=== PATIENT | male | born 1975 | race Caucasian/White ===

== ENCOUNTER 2021-10-14 17:01 | Inpatient (IN) | payer BC ==
--- OUTSIDE RECORDS SUMMARY | 2021-10-14 17:04 | XMS REPORT | Continuity of Care Document ---
:1975 Author Organization [facility] t Address [address] [place] [address] Care Team Providers Name Role Phone UNKNOWN Primary Care Physician Unavailable ALEJANDRO MANRIQUEZ M.D. Attending Clinician Unavailable ALEJANDRO MANRIQUEZ M.D. Admitting Clinician Unavailable Payers Payer Name Policy Type Policy Number Effective Date Expiration Date S ource Problems This patient has no known problems. Allergies, Adverse Reactions, Alerts Allergy Allergy Status Severity Reaction(s) Onset Inactive Treating Comm ents Source Name Type Date Date Clinician No Known DA Active U [facility] All[facility]ie 03-12 [place] s 00:00: d 00 [facility] Medications This patient has no known medications. Procedures This patient has no known procedures. Encounters Start End Encounter Admission Attending Care Care Encounter Source Date/Time Date/Time Type Type Clinicians Facility Department ID 2017-04-28 2017-04-28 Outpatient ALEJANDRO [facility] A[facility] [id number] 16:09:00 16:09:00 [facility] 2017-04-05 2017-04-05 Outpatient ALEJANDRO [facility] MED [id number] 14:08:00 14:08:00 [facility] Results Test Description Test Time Test Comments Results Result Sourc e Comments AFB Culture and 2017-05-24 Specimen/Source: Smear 10:38:00 Wound/LEFT HANDCollected: 03/29/2017 18:57 Status: Final Last Updated: 05/24/2017 10:38 [id number] e (Final) (Final) 03/30/17 No acid fast bacill seen on direct smear Culture Result (Final) (Final) 05/24/17 No growth of AFB at six (6) weeks Fungus Culture 2017-05-10 Specimen/Source: with Stain 12:05:00 Wound/LEFT HANDCollected: 03/29/2017 18:57 Status: Final Last Updated: 05/10/2017 12:05 Fungal Smear Result (Final) (Final) 03/30/17 No yeast or hyphae seen Culture Result (Final) (Final) 04/04/17 No Fungus isolated to date 04/11/17 No fungus isolated to date 04/18/17 No fungus isolated to date 04/25/17 No fungus isolated to date 05/02/17 No fungus isolated to date 05/10/17 No fungus isolated at 6 weeks Culture, Wound 2017-04-13 Specimen/Source: Surgical 15:57:00 Wound/LEFT HANDCollected: 03/29/2017 18:57 Status: Final Last Updated: 04/13/2017 15:57 Gram Stain (Final) (Final) 03/30/17 No organsims seen, No WBC's seen Culture Result (Final) (Final) 03/30/17 No growth 24 hours 03/31/17 From broth Gram Positive Cocci in chains 04/01/17 From broth Alpha hemolytic Streptococcus (Group D, not Enterococcus), sent to reference lab for identification and susceptibility testing 04/02/17 Anaerobic culture:No anaerobes isolated at 3 days 04/04/17 Streptococcus thoraltensis Susceptible: Cefepime, Cefotaxime, Ceftriaxone, Chloramphenicol, Clindamycin, Erythromycin, Levofloxacin, Penicillin, Vancomycin. +[facility]formed at [facility] +[facility] +[address] [place] [phone] + +Dir: Osmany Lewis MD Isolate (Final) (Final) 03/31/17 Few Pasteurella aerogenes 04/01/17 Sent to reference lab for susceptibility testing 04/02/17 Amoxicilllin/Clavulan ic Acid .032 ug/ml: Sensitive +04/13/17 Beta lactamase negative +Azithromycin: Susceptible +Ampicillin: Susceptible +Chloramphenicol: Susceptible +Erythromycin: Resistant +Penicillin: Susceptible +Tetracycline: Susceptible +Trimethoprim/Sulfa: Intermediate +Performed at [facility] +[facility] +[address] [place] [phone] + +Dir: Cullen Chapman MD Result added after release. Isolate (Final) (Final) 03/31/17 Few Pasteurella aerogenes 04/01/17 Sent to reference lab for susceptibility testing +04/02/17 Amoxicilllin/Clavulan ic Acid .032 ug/ml: Sensitive Result added after release. Culture Result (Final) (Final) 03/30/17 No growth 24 hours 03/31/17 From broth Gram Positive Cocci in chains 04/01/17 From broth Alpha hemolytic Streptococcus (Group D, not Enterococcus), sent to reference lab for identification and susceptibility testing 04/02/17 Anaerobic culture:No anaerobes isolated at 3 days +04/04/17 Streptococcus thoraltensis +Susceptible: Cefepime, Cefotaxime, Ceftriaxone, Chloramphenicol, +Clindamycin, Erythromycin, Levofloxacin, Penicillin, Vancomycin. Result added after release. Culture Result (Final) (Final) 03/30/17 No growth 24 hours 03/31/17 From broth Gram Positive Cocci in chains 04/01/17 From broth Alpha hemolytic Streptococcus (Group D, not Enterococcus), sent to reference lab for identification and susceptibility testing 04/02/17 Anaerobic culture:No anaerobes isolated at 3 days Result added after release. Isolate (Final) (Final) 03/31/17 Few Pasteurella aerogenes 04/01/17 Sent to reference lab for susceptibility testing
[2021-10-14] MEDS ORDERED: METOPROLOL TARTRATE 5 MG/5 ML INJ IV ONE (17:49)
[2021-10-14 17:51] LABS: Absolute Lymphocytes (CBC) 1.2 K/uL (0.7-4.9); Lymphocytes % 20.1 % (15.3-44.8); MPV 8.6 fL (7.6-11.3); RBC Red Blood Cell Count 4.29 M/uL (4.33-5.43)
[2021-10-14 18:14] LABS: Potassium 3.5 mmol/L (3.5-5.1)
[2021-10-14 18:16] LABS: Troponin High Sensitivity 76.1 pg/mL (<58.9)
--- NOTE | 2021-10-14 18:43 | RAD REPORT ---
EXAM DESCRIPTION: RAD - Chest Single View - 10/14/2021 6:19 pm CLINICAL HISTORY: Hypertension COMPARISON: Chest Single View dated 05/25/2021; Chest Pa And Lat (2 Views) dated 02/13/2021; Chest Sin gle View dated 02/02/2021; Chest Single View dated 11/28/2020No comparisons FINDINGS: Lines: None. Lungs: Low lung volumes. Hazy lung opacities bilaterally. Pleural: No significant pleural effusions or pneumothorax. Cardiac: Cardiomegaly. Bones: No acute fractures. Other: IMPRESSION: Hazy lung opacities bilaterally concerning for edema.
--- NOTE | 2021-10-14 19:42 | RAD REPORT ---
EXAM DESCRIPTION: CT - Head Brain Wo Cont - 10/14/2021 7:34 pm CLINICAL HISTORY: vision loss COMPARISON: <Comparisons> TECHNIQUE: All CT scans are performed using dose optimization technique as appropriate and may inclu de automated exposure control or mA/KV adjustment according to patient size. FINDINGS: No intracranial hemorrhage, hydrocephalus or extra-axial fluid collection.No areas of brai n edema or evidence of midline shift. The paranasal sinuses and mastoids are clear. The calvarium is intact. IMPRESSION: No acute intracranial abnormality.
--- NOTE | 2021-10-14 21:11 | ER ---
Nurse's Notes [facility] Name: Pedro Luis Smith Age: 46 yrs Sex: Male : 1975 Arrival Date: 10/14/2021 Time: 17:04 Bed 28 Private MD: Diagnosis: Essential (primary) hypertension;Hypertensive crisis, unspecified;Hyperglycemia, unspecified;Other obesity;Low vision, one eye, unspecified eye-OPTIC PAPILLITIS Presentation: 10/14 17:14 Chief complaint: Patient states: HTN today while at opthmologist. BP 240/150. Has been ll1 loosing vision in his R eye for 19 days. Coronavirus screen: Vaccine status: Patient reports being unvaccinated. Client denies travel out of the [place] in the last 14 days. At this time, the client does not indicate any symptoms associated with coronavirus-19. Ebola Screen: Patient denies travel to an Ebola-affected area in the 21 days before illness onset. Initial Sepsis Screen: Does the patient meet any 2 criteria? No. Patient's initial sepsis screen is negative. Does the patient have a suspected source of infection? No. Patient's initial sepsis screen is negative. Risk Assessment: Do you want to hurt yourself or someone else? Patient reports no desire to harm self or others. Onset of symptoms was October 14, 2021. 17:14 Method Of Arrival: Ambulatory ll1 17:14 Acuity: VELVET 2 ll1 Triage Assessment: 17:17 General: Appears in no apparent distress. Behavior is calm, cooperative, appropriate ll1 for age. Pain: Denies pain. EENT: Reports decreased vision R eye. Neuro: Denies headache. Cardiovascular: Reports high BP. Historical: - Allergies: 17:17 No Known Allergies; ll1 - PMHx: 17:17 Hypertensive disorder; ll1 - PSHx: 17:17 hand SX; ll1 - Immunization history:: Client reports having NOT received the Covid vaccine. Flu vaccine status is unknown. - Social history:: Smoking status: Patient denies any tobacco usage or history of. Screenin:40 Abuse screen: Denies threats or abuse. Nutritional screening: No deficits noted. vg1 Tuberculosis screening: No symptoms or risk factors identified. Fall Risk No fall in past 12 months (0 pts). No secondary diagnosis (0 pts). IV access (20 points). Ambulatory Aid- None/Bed Rest/Nurse Assist (0 pts). Gait- Normal/Bed Rest/Wheelchair (0 pts) Mental Status- Oriented to own ability (0 pts). Total Santos Fall Scale indicates No Risk (0-24 pts). Assessment: 17:39 Reassessment: Pt stated has not take BP meds in approximately two years. General: vg1 Appears comfortable, Behavior is calm, cooperative. Pain: Denies pain. Neuro: Level of Consciousness is awake, alert, obeys commands, Oriented to person, place, time, situation, Denies headache. Cardiovascular: Denies chest pain, lightheadedness, nausea, palpitations, shortness of breath, vomiting, Patient's skin is warm and dry. Respiratory: Airway is patent Respiratory effort is even, unlabored. GI: Patient currently denies nausea, vomiting. : No signs and/or symptoms were reported regarding the genitourinary system. EENT: Reports went to go see an eye doctor today due to vision loss x 10 day. Derm: Skin is intact, is healthy with good turgor. Musculoskeletal: Circulation, motion, and sensation intact. 18:58 Reassessment: Patient appears in no apparent distress at this time. No changes from vg1 previously documented assessment. Patient and/or family updated on plan of care and expected duration. Pain level reassessed. Patient is alert, oriented x 3, equal unlabored respirations, skin warm/dry/pink. 19:42 Reassessment: Patient appears in no apparent distress at this time. as6 21:21 General: Appears in no apparent distress. comfortable, Behavior is calm, cooperative, tw5 appropriate for age. Pain: Denies pain. Neuro: No deficits noted. Cardiovascular: Denies chest pain, Patient's skin is warm and dry. 22:06 Cardiovascular: flushed in the face. tw5 Vital Signs: 17:14 BP 223 / 131; Pulse 93; Resp 18; Temp 98.2; Pulse Ox 99% ; Weight 113.4 kg; Height 5 ll1 ft. 9 in. (175.26 cm); Pain 0/10; 17:38 BP 211 / 105; Pulse 98; Resp 14; Pulse Ox 98% ; vg1 17:53 BP 209 / 110; Pulse 85; vg1 18:00 BP 203 / 108; Pulse 80; vg1 18:05 BP 203 / 120; Pulse 80; vg1 18:09 BP 202 / 106; Pulse 79; vg1 18:17 BP 191 / 125; Pulse 81; vg1 18:26 BP 204 / 110; Pulse 79; Resp 18; ap3 18:55 BP 196 / 114; Pulse 80; Resp 17; Pulse Ox 99% on R/A; vg1 19:41 BP 206 / 111; Pulse 83 MON; Resp 20 S; Pulse Ox 99% on R/A; as6 20:56 BP 197 / 120; Pulse 76; Resp 18; Pulse Ox 96% on R/A; tw5 21:21 BP 199 / 112; Pulse 98; Pulse Ox 97% on R/A; tw5 22:05 BP 199 / 115; Pulse 90; Resp 18; Pulse Ox 100% on R/A; tw5 22:30 BP 181 / 100; Pulse 88; Resp 18; Pulse Ox 100% on R/A; tw5 23:06 BP 188 / 97; Pulse 90; Resp 18; Pulse Ox 97% on R/A; tw5 17:14 Body Mass Index 36.92 (113.40 kg, 175.26 cm) ll1 ED Course: 17:04 Patient arrived in ED. ds1 17:12 Kevin Zepeda MD is Attending Physician. kdr 17:17 Triage completed. ll1 17:17 Arm band placed on Patient placed in an exam room, on a stretcher. ll1 17:25 Jennifer Edwards, RN is Primary Nurse. vg1 17:28 EKG completed in triage. Results shown to MD. ap3 17:35 Initial lab(s) drawn, by ak, sent to lab. Inserted saline lock: 20 gauge in right vg1 antecubital area, using aseptic technique. Blood collected. 17:40 Patient has correct armband on for positive identification. Bed in low position. Call 1 light in reach. Side rails up X 1. Adult w/ patient. security monitor on. Pulse ox on. NIBP on. 18:21 XRAY Chest (1 view) In Process Unspecified. EDMS 19:17 Attending Physician role handed off by Kevin Zepeda MD rishabh 19:17 Johan Parks MD is Attending Physician. rishabh 19:34 Head Brain Wo Cont In Process Unspecified. EDMS 20:48 Basic Metabolic Panel Sent. tw5 20:48 CBC with Diff Sent. tw 20:48 Troponin HS Sent. tw 21:07 Katie Gay MD is Hospitalizing Provider. [facility] 21:11 Rene Guaman MD is Hospitalizing Provider. la 21:21 BNP Sent. tw10/15 00:23 No provider procedures requiring assistance completed. Patient admitted, IV remains in tw5 place. Administered Medications: 10/14 17:49 Drug: Lopressor (metoprolol) 5 mg Route: IVP; Site: right antecubital; vg1 17:56 Drug: Lopressor (metoprolol) 5 mg Route: IVP; Site: right antecubital; vg1 18:05 Drug: Lopressor (metoprolol) 5 mg Route: IVP; Site: right antecubital; vg1 21:21 Follow up: Response: No adverse reaction; Blood pressure is unchanged 21:21 Drug: Norvasc (amlodipine) 10 mg Route: PO; 23:10 Follow up: Response: No adverse reaction; Blood pressure is lowered 21:21 Drug: hydrALAZINE 10 mg Route: IVP; Site: right antecubital; tw 23:10 Follow up: Response: No adverse reaction; Blood pressure is lowered 21:21 Drug: HydrALAZINE 25 mg Route: PO; 23:10 Follow up: Response: No adverse reaction; Blood pressure is lowered 10/15 00:23 Drug: Lisinopril 10 mg Route: PO; 00:23 Follow up: Response: Other; adminstered upon hospitlization. Intake: Outcome: 10/14 21:10 Decision to Hospitalize by Provider. [facility] 10/15 00:14 Admitted to ICU Report called to Attempted to call report to melanie in ICU 00:23 Condition: stable 00:23 Admitted to ICU Report called to report called to melanie 00:24 Patient left the ED. Signatures: Dispatcher [employer] Johan May MD MD cha Rittger, Kevin, MD MD kdr Sanford, Demi ds1 Rd Floyd, SECONDS GRADER-C SECONDS GRADER-Cla1 Tatum Garibay RN RN ap3 Jennifer Edwards RN RN vg1 Linda Cowan RN RN 1 Ermelinda Freedman tw5 Jose Alejandro Flores RN RN as6 Corrections: (The following items were deleted from the chart) 10/14 17:42 17:39 EENT: No signs and/or symptoms were reported regarding the EENT system. vg1 vg1 18:09 17:37 COVID 19 CPL+ drawn and sent. vg1 EDMS
--- NOTE | 2021-10-14 21:11 | EDPHYS ---
Physician Documentation [facility] Name: Pedro Luis Smith Age: 46 yrs Sex: Male : 1975 Arrival Date: 10/14/2021 Time: 17:04 Bed 28 Private MD: ED Physician Johan Parks HPI: 10/14 18:55 This 46 yrs old Male presents to ER via Ambulatory with complaints of High Blood kdr Pressure. 18:55 The patient has elevated blood pressure and discovered this Patient's been off of his kdr blood pressure medicine for a couple of years. Today he went to the information resource consultant office because he was having some visual difficulty in his right eye. The information resource consultant noted that he has a visual field deficit in the right eye in the upper nasal quadrant. He also noted some optic nerve abnormalities. At that time a blood pressure was taken and it was noted to be elevated similar to what was found to triage here. Subsequently was told to come to the ED for further evaluation.. Onset: The symptoms/episode began/occurred at an unknown time. Modifying factors: The symptoms are aggravated by Nothing, The symptoms are alleviated by Nothing. Associated signs and symptoms: Pertinent positives: visual changes. Severity of symptoms: At its worst the blood pressure was 230 mm Hg, in the emergency department the blood pressure is unchanged. The patient has experienced similar episodes in the past, chronically. The patient has not recently seen a physician, Patient was sent from the information resource consultant office today. Historical: - Allergies: 17:17 No Known Allergies; ll1 - PMHx: 17:17 Hypertensive disorder; ll1 - PSHx: 17:17 hand SX; ll1 - Immunization history:: Client reports having NOT received the Covid vaccine. Flu vaccine status is unknown. - Social history:: Smoking status: Patient denies any tobacco usage or history of. ROS: 18:55 Constitutional: Negative for fever, chills, and weight loss, Eyes: Negative for injury, kdr pain, redness, and discharge, ENT: Negative for injury, pain, and discharge, Neck: Negative for injury, pain, and swelling, Cardiovascular: Negative for chest pain, palpitations, and edema, Respiratory: Negative for shortness of breath, cough, wheezing, and pleuritic chest pain, Abdomen/GI: Negative for abdominal pain, nausea, vomiting, diarrhea, and constipation, Back: Negative for injury and pain, : Negative for injury, bleeding, discharge, and swelling, MS/Extremity: Negative for injury and deformity, Skin: Negative for injury, rash, and discoloration, Psych: Negative for depression, anxiety, suicide ideation, homicidal ideation, and hallucinations, Allergy/Immunology: Negative for hives, rash, and allergies, Endocrine: Negative for neck swelling, polydipsia, polyuria, polyphagia, and marked weight changes, Hematologic/Lymphatic: Negative for swollen nodes, abnormal bleeding, and unusual bruising. 18:55 Neuro: Positive for visual changes. Exam: 17:46 ECG was reviewed by the Attending Physician. kdr 18:55 Constitutional: This is a well developed, well nourished patient who is awake, alert, kdr and in no acute distress. Head/Face: Normocephalic, atraumatic. Eyes: Pupils equal round and reactive to light, extra-ocular motions intact. Lids and lashes normal. Conjunctiva and sclera are non-icteric and not injected. Cornea within normal limits. Periorbital areas with no swelling, redness, or edema. Neck: Trachea midline, no thyromegaly or masses palpated, and no cervical lymphadenopathy. Supple, full range of motion without nuchal rigidity, or vertebral point tenderness. No Meningismus. Chest/axilla: Normal chest wall appearance and motion. Nontender with no deformity. No lesions are appreciated. Cardiovascular: Regular rate and rhythm with a normal S1 and S2. No gallops, murmurs, or rubs. Normal PMI, no JVD. No pulse deficits. Respiratory: Lungs have equal breath sounds bilaterally, clear to auscultation and percussion. No rales, rhonchi or wheezes noted. No increased work of breathing, no retractions or nasal flaring. Abdomen/GI: Soft, non-tender, with normal bowel sounds. No distension or tympany. No guarding or rebound. No evidence of tenderness throughout. Back: No spinal tenderness. No costovertebral tenderness. Full range of motion. Skin: Warm, dry with normal turgor. Normal color with no rashes, no lesions, and no evidence of cellulitis. MS/ Extremity: Pulses equal, no cyanosis. Neurovascular intact. Full, normal range of motion. Psych: Awake, alert, with orientation to person, place and time. Behavior, mood, and affect are within normal limits. Vital Signs: 17:14 BP 223 / 131; Pulse 93; Resp 18; Temp 98.2; Pulse Ox 99% ; Weight 113.4 kg; Height 5 ll1 ft. 9 in. (175.26 cm); Pain 0/10; 17:38 BP 211 / 105; Pulse 98; Resp 14; Pulse Ox 98% ; vg1 17:53 BP 209 / 110; Pulse 85; vg1 18:00 BP 203 / 108; Pulse 80; vg1 18:05 BP 203 / 120; Pulse 80; vg1 18:09 BP 202 / 106; Pulse 79; vg1 18:17 BP 191 / 125; Pulse 81; vg1 18:26 BP 204 / 110; Pulse 79; Resp 18; ap3 18:55 BP 196 / 114; Pulse 80; Resp 17; Pulse Ox 99% on R/A; vg1 19:41 BP 206 / 111; Pulse 83 MON; Resp 20 S; Pulse Ox 99% on R/A; as6 20:56 BP 197 / 120; Pulse 76; Resp 18; Pulse Ox 96% on R/A; tw5 21:21 BP 199 / 112; Pulse 98; Pulse Ox 97% on R/A; tw5 22:05 BP 199 / 115; Pulse 90; Resp 18; Pulse Ox 100% on R/A; tw5 22:30 BP 181 / 100; Pulse 88; Resp 18; Pulse Ox 100% on R/A; tw5 23:06 BP 188 / 97; Pulse 90; Resp 18; Pulse Ox 97% on R/A; tw5 17:14 Body Mass Index 36.92 (113.40 kg, 175.26 cm) ll1 MDM: 19:17 Patient medically screened. rishabh 21:05 Differential diagnosis: hypertensive crisis, Malignant HTN, CVA, intracerebral rishabh hemorrhage. Data reviewed: vital signs, nurses notes, lab test result(s), EKG, radiologic studies, CT scan, plain films. Data interpreted: monitoring analyst: rate is 76 beats/min, rhythm is regular, Pulse oximetry: on room air is 96 %. Test interpretation: by ED physician or midlevel provider: ECG, plain radiologic studies. Counseling: I had a detailed discussion with the patient and/or guardian regarding: the historical points, exam findings, and any diagnostic results supporting the discharge/admit diagnosis, lab results, radiology results, the need for further work-up and treatment in the hospital. 10/14 17:36 Order name: Basic Metabolic Panel; Complete Time: 19:14 vg1 10/14 17:36 Order name: CBC with Diff; Complete Time: 19:14 vg1 10/14 17:36 Order name: Troponin HS; Complete Time: 19:14 vg1 10/14 17:36 Order name: Basic [facility]abolic Panel [facility] 10/14 17:36 Order name: CBC with Diff [facility] 10/14 17:36 Order name: XRAY Chest (1 view); Complete Time: 19:14 vg1 10/14 17:36 Order name: Troponin HS [facility] 10/14 18:09 Order name: SARS-COV-2 RT PCR; Complete Time: 19:14 EDMS 10/14 19:34 Order name: Head Brain Wo Cont; Complete Time: 21:05 EDMS 10/14 21:05 Order name: BNP; Complete Time: 22:08 rishabh 10/14 17:36 Order name: EKG; Complete Time: 17:37 1 10/14 17:36 Order name: Cardiac monitoring; Complete Time: 17:36 1 10/14 17:36 Order name: EKG - Nurse/Tech; Complete Time: 17:36 [facility] 10/14 17:36 Order name: IV Saline Lock; Complete Time: 17:36 1 10/14 17:36 Order name: Labs collected and sent; Complete Time: 17:37 1 10/14 17:36 Order name: O2 Per Protocol; Complete Time: 17:37 1 10/14 17:36 Order name: O2 Sat Monitoring; Complete Time: 17:43 1 10/14 17:36 Order name: EKG; Complete Time: 17:37 kdr 10/14 17:36 Order name: Cardiac monitoring; Complete Time: 17:42 kdr 10/14 17:36 Order name: EKG - Nurse/Tech; Complete Time: 17:42 kdr 10/14 17:36 Order name: IV Saline Lock; Complete Time: 17:42 kdr 10/14 17:36 Order name: Labs collected and sent; Complete Time: 17:43 kdr 10/14 17:36 Order name: O2 Per Protocol; Complete Time: 17:42 kdr 10/14 17:36 Order name: O2 Sat Monitoring; Complete Time: 17:42 kdr EC:46 Rate is 94 beats/min. Rhythm is regular, Sinus Rhythm with No ectopy. QRS [place] is kdr Normal. VT interval is normal. QRS interval is normal. QT interval is normal. Clinical impression: NSR w/ Non-specific ST/T Changes. Administered Medications: 17:49 Drug: Lopressor (metoprolol) 5 mg Route: IVP; Site: right antecubital; vg1 17:56 Drug: Lopressor (metoprolol) 5 mg Route: IVP; Site: right antecubital; vg1 18:05 Drug: Lopressor (metoprolol) 5 mg Route: IVP; Site: right antecubital; vg1 21:21 Follow up: Response: No adverse reaction; Blood pressure is unchanged tw5 21:21 Drug: Norvasc (amlodipine) 10 mg Route: PO; tw5 23:10 Follow up: Response: No adverse reaction; Blood pressure is lowered tw5 21:21 Drug: hydrALAZINE 10 mg Route: IVP; Site: right antecubital; tw5 23:10 Follow up: Response: No adverse reaction; Blood pressure is lowered tw5 21:21 Drug: HydrALAZINE 25 mg Route: PO; tw5 23:10 Follow up: Response: No adverse reaction; Blood pressure is lowered tw5 10/15 00:23 Drug: Lisinopril 10 mg Route: PO; tw5 00:23 Follow up: Response: Other; adminstered upon hospitlization. tw5 Disposition Summary: 10/14/21 21:10 Hospitalization Ordered Hospitalization Status: Observation rishabh Condition: Fair rishabh Problem: new rishabh Symptoms: have improved rishabh Bed/Room Type: Standard rishabh Provider: Rene Guaman(10/14/21 21:11) la1 Location: Intensive Care Unit(10/15/21 00:08) eb1 Room Assignment: 1-(10/15/21 00:08) eb1 Diagnosis - Essential (primary) hypertension rishabh - Hypertensive crisis, unspecified rishabh - Hyperglycemia, unspecified rishabh - Other obesity rishabh - Low vision, one eye, unspecified eye - OPTIC PAPILLITIS rishabh Forms: - Medication Reconciliation Form rishabh - SBAR form rishabh Signatures: Dispatcher [employer] EDJohan Meadows MD MD cha Rittger, Kevin, MD MD kdr Attema, Lee, FNP-C CERTIFIED LACTATION EDUCATOR-Cla1 Melinda Moser RN RN eb1 Jennifer Edwards, RN RN vg1 Linda Cowan, RN RN 1 Ermelinda Freedman 5 Corrections: (The following items were deleted from the chart) 10/14 17:46 17:37 Chest Single View+RAD.RAD.BRZ ordered. EDMS EDMS 18:09 17:30 COVID 19 CPL+MR.LAB.BRZ ordered. EDMS EDMS 19:34 18:08 Head Brain W/Wo Con ordered. EDMS EDMS 21:11 21:10 Katie Gay cha [facility] 10/15 00:08 10/14 21:10 [facility] 00:08 10/14 21:10 [place] [id number]
[2021-10-14] MEDS ORDERED: HYDRALAZINE HCL 20 MG/ML VIAL ONE (21:12)
[2021-10-14] MEDS ORDERED: HYDRALAZINE HCL 25 MG TABLET ONE (21:12)
[2021-10-14] MEDS ORDERED: AMLODIPINE 10 MG TAB ONE (21:13)
--- NOTE | 2021-10-14 22:31 | P.HP ---
Certification for Inpatient Patient admitted to: Inpatient With expected LOS: >2 Midnights Patient will require the following post-hospital care: None Practitioner: I am a practitioner with admitting privileges, knowledge of patient current condition, hospital course, and medical plan of care. Services: Services provided to patient in accordance with Admission requirements found in Title 42 Section 412.3 of the Code of Federal Regulations Patient History Date of Service: 10/14/21 Reason for admission: hypertensive emergency History of Present Illness: 46-year-old male with history of hypertension presents to the emergency department for elevated blood pressure. Patient reports that he has been having difficulty with his vision in his right eye over the course of the last 1 week or so he was seen by clinical data assistant who noted that his blood pressure was markedly elevated in the 200s over 100s he was then referred to the emergency department for further evaluation. Throughout his stay in the emergency department his blood pressure has been as high as 223/131 without a diastolic less than 105 at any point his labs revealed mildly elevated troponin, BNP. Patient reports that he has been off of his blood pressure medication for last 3 years and that he has checked his blood pressure on occasion and noted that his systolic is always around 200. His chest x-ray did reveal what appeared to be some mild pulmonary edema CT head brain without any acute findings. ED provider wishes to admit for further evaluation and management of hypertensive emergency - Past Medical/Surgical History -: Hypertension -: Left hand surgery Psychosocial/ Personal History: Lives at home with his family - Family History Mother -: Heart disease - Social History Smoking Status: Never smoker Alcohol use: Yes CD- Drugs: No Caffeine use: Yes Place of Residence: Home Review of Systems 10-point ROS is otherwise unremarkable Eyes: Vision Change (For 1 week right eye) Physical Examination - Physical Exam General: Alert, In no apparent distress, Oriented x3 HEENT: Atraumatic, PERRLA, Mucous membr. moist/pink, EOMI, Sclerae nonicteric Neck: Supple, 2+ carotid pulse no bruit, No LAD, Without JVD or thyroid abnormality Respiratory: Clear to auscultation bilaterally, Normal air movement Cardiovascular: Regular rate/rhythm, Normal S1 S2 Gastrointestinal: Normal bowel sounds, No tenderness Musculoskeletal: No tenderness Integumentary: No rashes Neurological: Normal speech, Normal strength at 5/5 x4 extr, Normal tone, Normal affect - Studies Laboratory Data (last 24 hrs) 10/14/21 17:35: WBC 5.9, Hgb 12.8 L, Hct 38.0 L, Plt Count 185 10/14/21 17:35: Sodium 138, Potassium 3.5, BUN 16, Creatinine 1.15, Glucose 278 H Assessment and Plan - Plan Assessment: Hypertensive emergency, elevated troponin Right eye visual field loss Plan: Hypertensive emergency, elevated troponin: Patient started on antihypertensive agents including lisinopril, metoprolol, amlodipine. Will aim for a modest drop in blood pressure throughout the evening. Cardiology consult in place will trend troponins, monitor on telemetry, patient denies any chest pain echocardiogram has been ordered as well. Patient ports he had longstanding significant hypertension and has blood pressure has been in the 200s over the course of last 3 years most likely. Counseled patient on importance of obtaining control of her blood pressure. Right eye visual field loss: Patient reports ongoing problem over the course last 1 week was evaluated by clinical data assistant today who did complete evaluation prior to referring him to the emergency department for the hypertension symptoms are unilateral in the superior medial aspect of the right eye with some blurriness CT head without contrast negative for any acute findings no visual field loss left eye, recommend further evaluation from ophthalmology after hypertension better controlled. DVT PPX: Lovenox Code status: Full Discharge Plan: Home Plan to discharge in: 48 Hours - Advance Directives Does patient have a Living Will: No Does patient have a Durable POA for Healthcare: No - Code Status/Comfort Care Code Status Assessed: Yes (Full code) Critical Care: No Time Spent Managing Pts Care (In Minutes): 55
[2021-10-15] MEDS ORDERED: HYDRALAZINE HCL 20 MG/ML VIAL IV PRN (00:23)
[2021-10-15] MEDS ORDERED: ONDANSETRON 4 MG/2 ML VIAL IV PRN (00:23)
[2021-10-15] MEDS ORDERED: lisinopriL 10 MG TAB ONE (00:27)
[2021-10-15 01:07] VITALS: O2SAT 97; BMI 41.1
--- NOTE | 2021-10-15 05:58 | P.PN ---
Date of Service: 10/15/21
[2021-10-15] MEDS ORDERED: METOPROLOL TAR 25 MG TAB PO SCH (06:00)
[2021-10-15 06:38] LABS: Absolute Lymphocytes (CBC) 1.2 K/uL (0.7-4.9); Lymphocytes % 19.8 % (15.3-44.8); MPV 8.4 fL (7.6-11.3); RBC Red Blood Cell Count 4.21 M/uL (4.33-5.43)
[2021-10-15 06:48] LABS: Urine Appearance Clear (Clear); Urine Bilirubin Negative (Negative); Urine Blood Negative (Negative); Urine Color Yellow (Yellow); Urine Glucose 2+ (Negative); Urine Protein Negative (Negative); Urine Urobilinogen 0.2 mg/dL (0.2-1.0)
[2021-10-15 06:49] LABS: Urine Microscopic Reflex NO UMIC
[2021-10-15 06:49] LABS: ALT/SGPT 78 U/L (12-78); AST/SGOT 48 U/L (15-37); Albumin 3.6 g/dL (3.4-5.0); Alkaline Phosphatase 48 U/L (45-117); BUN Blood Urea Nitrogen 11 mg/dL (7-18); Bicarbonate 27 mmol/L (21-32); Bilirubin Total 0.7 mg/dL (0.2-1.0); Glucose Level 232 mg/dL (74-106); HDL Cholesterol 24 mg/dL (40-60); LDL Cholesterol, Calculated 88 mg/dL (<130); Potassium 3.3 mmol/L (3.5-5.1); Protein, Total 6.6 g/dL (6.4-8.2); Sodium Level 139 mmol/L (136-145)
[2021-10-15] MEDS ORDERED: POTASSIUM CL SA 10 MEQ TAB PO ONE (07:51)
[2021-10-15] MEDS ORDERED: lisinopriL 10 MG TAB PO SCH (09:00)
[2021-10-15] MEDS ORDERED: AMLODIPINE 10 MG TAB PO SCH (09:00)
[2021-10-15] MEDS ORDERED: ASPIRIN EC 81 MG TAB PO SCH (09:00)
[2021-10-15] MEDS ORDERED: ENOXAPARIN 40 MG/0.4 ML SQ SCH (09:00)
--- NOTE | 2021-10-15 12:02 | RAD REPORT ---
EXAM DESCRIPTION: MRI - MRA Head Wo Cont - 10/15/2021 11:46 am CLINICAL HISTORY: Blurred vision COMPARISON: None. TECHNIQUE: Magnetic resonance angiogram was performed. 3D MIPS reconstruction performed FINDINGS: The anterior cerebral, middle cerebral, posterior cerebral, distal internal carotid and ba silar arteries do not demonstrate a significant stenosis. An aneurysm is not displayed. IMPRESSION: No acute abnormality displayed
--- NOTE | 2021-10-15 12:17 | RAD REPORT ---
EXAM DESCRIPTION: MRI - MRA Neck W/Wo Cont - 10/15/2021 11:46 am CLINICAL HISTORY: Blurred vision COMPARISON: None. TECHNIQUE: Magnetic resonance angiogram of the neck was performed. 20 cc MultiHance was administered intravenously. 3D MIPS reconstruction performed FINDINGS: Moderate stenosis proximal right vertebral artery. Remainder the vertebral arteries are no rmal caliber. Vertebral arteries are codominant. Mild plaque within the common carotid, internal carotid and external carotid arteries A dissection is not seen. IMPRESSION: Moderate stenosis proximal right vertebral artery estimated approximately 50 55%. Mild plaque within the carotid arteries NASCET criteria used. Mild 0-49% stenosis Moderate 50-69% stenosis Severe 70-99% stenosis
--- NOTE | 2021-10-15 12:17 | RAD REPORT ---
EXAM DESCRIPTION: MRI - Brain W/Wo Cont - 10/15/2021 11:47 am CLINICAL HISTORY: Blurred vision COMPARISON: head CT October 14, 2021 TECHNIQUE: Axial, sagittal, and coronal magnetic images of the brain were obtained. 20 cc MultiHance administered intravenously FINDINGS: No significant abnormal signal within the brain The ventricles are normal in caliber. Diffusion-weighted/ ADC mapping sequences do not demonstrate evidence of an acute infarction. No abnormal enhancement within the brain is seen. An extra-axial fluid collection is not noted. Fluid within the frontal sinus IMPRESSION: No acute intracranial abnormality displayed Fluid within the frontal sinus probably acute sinusitis
[2021-10-15 13:45] VITALS: TEMP 98.3
--- NOTE | 2021-10-15 14:07 | CON ---
Date of Consultation: 10/15/2021 Reason For Consultation: Hypertensive crisis. History Of Present Illness: Mr. Smith is a 46 with history of hypertension, but not taking any medic ations. He recently saw a physician because of right eye blindness. 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 No symptoms of chest pain or nausea or vomiting or diaphoresis. Denied PND, orthopnea, pedal edema, palpitations, or sync ope. His troponin was elevated at 76.1. BNP was 349, triglycerides 358. Past Medical History: Otherwise negative. Allergies: NONE. Medications: At home are none. Review of Systems: Negative. Social History: Negative. Family History: Negative. Physical Examination: Vital Signs: Blood pressure was 196/114 when he came in, when I saw him it was 140/84. HEENT: Negative. Neck: Supple with no bruit. Chest: Clear. Cardiac: Revealed a regular rhythm and rate with S4 gallops. Abdomen: Benign. Extremities: Revealed no clubbing, cyanosis, or edema. Diagnostic Data: As stated above. Chest x-ray was negative. EKG showed LVH. Impression And Plan: Hypertensive crisis, improved. He is on hydralazine, metoprolol, and lisinopri l. I agree with his present regimen. Echocardiogram is pending. He can go home today on his regime n as it is. I will make an arrangement for him as an outpatient to have a renal Doppler and MPI. AZIZA/CADENCE Voice ID: [id number] Report ID: [id number]
--- NOTE | 2021-10-15 16:11 | P.DS ---
Admission Date: 10/14/21 Discharge Date: 10/15/21 Disposition: ROUTINE DISCHARGE Discharge Condition: GOOD Reason for Admission: hypertensive emergency Consultations: Cardiology - Dr. Koehler Neurology - Dr. Prado Procedures: Problem List Amaurosis Fugax, Right eye visual field loss secondary to uncontrolled HTN, NSTEMI, secondary to demand ischemia due to HTN Brief History of Present Illness: 46yo M, PMH: HTN presented to ED due to elevated blood pressure noted as client hr manager office. Patient reports that he has been having difficulty with his vision in his right eye over the course of the last 1 week or so he was seen by client hr manager who noted that his blood pressure was markedly elevated in the 200s over 100s he was then referred to the emergency department for further evaluation. Throughout his stay in the emergency department his blood pressure has been as high as 223/131 without a diastolic less than 105 at any point his labs revealed mildly elevated troponin, BNP. Patient reports that he has been off of his blood pressure medication for last 3 years and that he has checked his blood pressure on occasion and noted that his systolic is always around 200. His chest x-ray did reveal what appeared to be some mild pulmonary edema CT head brain without any acute findings. Hospital Course: Patient was noted monocular medial upper quadrant vision loss. His vision had slight improvement with better control of his blood pressure. Blood pressure remained [id number] systolic on day of discharge. He had received lisinopril and metoprolol. In the ED he also received 1 dose of p.o. hydralazine. Patient did not have any other neurologic findings on exam. As visualized was further evaluated by MRI, which was negative for any acute process. MRA neck noted moderate stenosis of the proximal right vertebral artery, approximately 50-55%. Neurology was consulted, felt this could be likely secondary to findings by verifier operator around patient's ocular nerve/enlarged vessels. Symptomatology consistent with amaurosis fugax Neurology recommended treatment with aspirin, Plavix, statin, folic acid Cardiology was consulted and evaluated the patient as well given his severe hypertension /hypertensive emergency. Echocardiogram was obtained, and recommended no further inpatient work-up. Patient deemed stable for discharge home on new Antihypertensives Goal SBP: 140-160s over next week, and slowly lowering target blood pressure range. Follow-up with PCP in 3 to 5 days Follow-up with cardiology in 1 week Follow-up with neurology in 1 month Vital Signs/Physical Exam: Temp Pulse Resp BP Pulse Ox 98.3 F 82 22 H 155/88 H 98 10/15/21 12:00 10/15/21 15:00 10/15/21 15:00 10/15/21 15:00 10/15/21 15:00 General: Alert, In no apparent distress, Oriented x3 HEENT: Sclerae nonicteric Neck: Supple, No LAD Respiratory: Clear to auscultation bilaterally, Normal air movement Cardiovascular: No edema, Regular rate/rhythm Gastrointestinal: Soft and benign, Non-distended, No tenderness Musculoskeletal: No erythema, No tenderness Neurological: Normal speech, Normal strength at 5/5 x4 extr, Normal affect, Other (monocular vision loss in right eye affecting medial upper quadrant) Laboratory Data at Discharge: WBC 5.9 K/uL (4.3-10.9) 10/15/21 06:15 Hgb 12.7 g/dL (13.6-17.9) L 10/15/21 06:15 Hct 37.0 % (39.6-49.0) L 10/15/21 06:15 Plt Count 178 K/uL (152-406) 10/15/21 06:15 Sodium 139 mmol/L (136-145) 10/15/21 06:15 Potassium 3.3 mmol/L (3.5-5.1) L 10/15/21 06:15 BUN 11 mg/dL (7-18) 10/15/21 06:15 Creatinine 0.78 mg/dL (0.55-1.3) 10/15/21 06:15 Glucose 232 mg/dL (74-106) H 10/15/21 06:15 Total Bilirubin 0.7 mg/dL (0.2-1.0) 10/15/21 06:15 AST 48 U/L (15-37) H 10/15/21 06:15 ALT 78 U/L (12-78) 10/15/21 06:15 Alkaline Phosphatase 48 U/L (45-117) 10/15/21 06:15 Triglycerides 358 mg/dL (<150) H 10/15/21 06:15 Cholesterol 184 mg/dL (<200) 10/15/21 06:15 HDL Cholesterol 24 mg/dL (40-60) L 10/15/21 06:15 Cholesterol/HDL Ratio 7.67 10/15/21 06:15 Home Medications: Aspirin [Aspirin EC 81 MG] 81 mg PO DAILY 30 Days #30 tablet. 10/15/21 Atorvastatin Calcium [Lipitor] 40 mg PO BEDTIME 30 Days #30 tab 10/15/21 Clopidogrel Bisulfate [Plavix] 75 mg PO DAILY 30 Days #30 tablet 10/15/21 Folic Acid 1 mg PO DAILY 30 Days #30 tablet 10/15/21 Metoprolol Tartrate [Lopressor*] 25 mg PO BID 30 Days #60 tab 10/15/21 lisinopriL [Prinivil*] 10 mg PO DAILY 30 Days #30 tab 10/15/21 New Medications: Aspirin [Aspirin EC 81 MG] 81 mg PO DAILY 30 Days #30 tablet. Folic Acid 1 mg PO DAILY 30 Days #30 tablet Atorvastatin Calcium [Lipitor] 40 mg PO BEDTIME 30 Days #30 tab Metoprolol Tartrate [Lopressor*] 25 mg PO BID 30 Days #60 tab Clopidogrel Bisulfate [Plavix] 75 mg PO DAILY 30 Days #30 tablet lisinopriL [Prinivil*] 10 mg PO DAILY 30 Days #30 tab Physician Discharge Instructions: PROBLEM: Hypertension GOAL: Clear understanding of disease process INSTRUCTIONS: Please take new medications as prescribed. Monitor BP and keep record of it. Take with you to your follow up appointment. Follow up with PCP in 1-2 weeks. If symptoms worsen, please go to the ER. If you have any questions regarding hospital stay, feel free to call . Diet: AHA Activity: Ad franklin DME DME: Date Ordered: Name of Company: [employer] Services Needed: None Name of Company: Date or Referral: IMMUNIZATION Influenza Vaccine Indicated: Influenza Vaccine Given: Date Given: Pneumonia Vaccine Indicated: No Pneumonia Vaccine Given: Date Given: Diet: AHA Activity: Ad franklin Followup: NONE,NONE [Primary Care Provider] - 1-2 Weeks Time spent managing pt's care (in minutes): 45
[2021-10-15 16:31] VITALS: BP 157/98
[2021-10-15] MEDS ORDERED: ATORVASTATIN 40 MG TAB PO SCH (21:00)
--- NOTE | 2021-10-15 23:57 | CON ---
Reason For Consultation: Consultation called because of hypertensive emergency. History Of Present Illness: Mr. Smith is a 46-year-old right-handed patient with untreated , uncontrolled hypertension who comes to [facility] with a week's worth of vision loss in th e right eye. He had the symptoms onset more than a week ago, but did not immediately seek attention. After seeing the online trader, he was told that he was missing part of the visual field in the r ight eye. His blood pressures are systolic over 200s and diastolic over 100s. He came to [facility] and at that point, there was some change in the visual loss, but initially he said it appea red to be a shade where like he was looking at a horizon and half of his vision was gone. At [facility], blood pressure was 223/131 and he had brain imaging. Head CT scan showing no acute isc hemic or hemorrhagic change. Subsequent brain MRI showed no evidence of acute ischemic or hemorrhagi c change. There was fluid in the frontal sinus, likely due to acute sinusitis. MRA of his head show ed no abnormalities and MRA of his neck showed moderate stenosis in his proximal right vertebral roberta ry estimated to be 50%-55% and mild plaque in the carotid arteries. The patient did receive little r eduction in his hypertension and at the time of my evaluation in the emergency room, out of his right eye he was missing the left medial upper quadrant in terms of visual esquivel. Left eye had full visu al field. At no point he had face, arm or leg numbness or weakness. No incoordination. No problems with his balance. No loss of bowel or bladder function. No significant headache. He was treated with aspirin, Plavix, folic acid and high-dose statin, given the possibility of the ev ent being a stroke, although the MRI of the brain was negative. Past Medical History: As noted. Past Surgical History: Left hand surgery. Social History: He lives at home with family. Drinks alcohol occasionally. Denies tobacco. Uses c affeinated beverages. Family History: Positive for heart disease in mother. Review of Systems: Aside from his vision change in the right eye for more than a week, he has no recent fevers, chills, nausea, vomiting, myalgias, arthralgias, rash, headache, or weight change. No genitourinary or gastr ointestinal issues. No other positives on a 10 point systems review. Physical Examination: Vital Signs: Current blood pressure 157/98, pulse 81, respiratory rate 14, temperature 98.3, oxygen saturation 97% on room air. Weight 278 pounds, height 5 feet 5 inches, BMI 41.1. General: Mr. Smith is sitting in a chair beside the bed in the ICU. He is in no acute distress. HEENT: He is normocephalic, atraumatic. Sclerae anicteric. Oropharynx is pink and moist. Neck: Supple. Chest: Clear. Heart: Regular rate. Extremities: Show no clubbing, cyanosis, or edema. Neurologic: To confrontation out of the right eye, he is missing the superior medial quadrant. Othe rwise, intact vision of the right eye. Left eye has full visual esquivel. His extraocular movements a re intact. Facial sensation is intact to light touch, pinprick, and temperature. Tongue and palate are midline. Motor examination in the upper extremities and lower extremities, 5/5 proximally and di stally with normal bulk and tone. Sensory exam intact in upper and lower extremities proximally and distally to light touch, pinprick, and temperature. Coordination intact in upper and lower extremiti es. Reflexes 2+ in upper and lower extremities. Gait, good stance with right arm swing. Assessment: Mr. Smith is a 46-year-old patient with possibility existing of a stroke to the retina a [facility] MRI is negative. He does not have evidence of occipital stroke. He has very severe hyperten zuleyma and possible hypertensive emergency with neurological deficit that should be considered too in h is differential diagnosis. Plan: 1.Aspirin, Plavix, folic acid, statin. 2.His blood pressure may be normalized over the next 2 to 3 or 4 weeks. 3.He was told of the importance to be compliant with antihypertensive medications. 4.After discharge, he should follow up in Dr. Prado's clinic 1 month later. KRUPA/CADENCE Voice ID: [id number] Report ID: [id number]
--- NOTE | 2021-10-16 07:48 | EKG ---
Test Date: 2021-10-14 Test Time: 17:26:22 Towboat Pilot: LML MEASUREMENT RESULTS: Intervals: Rate: 94 NM: 162 QRSD: 92 QT: 378 QTc: 472 [place]: P: 63 NM: 162 QRS: -12 T: 107 INTERPRETIVE STATEMENTS: Normal sinus rhythm T wave abnormality, consider lateral ischemia Prolonged QT Abnormal ECG No previous ECG available for comparison Electronically Signed On 10-16-21 07:42:49 CDT by Jesus Koehler
--- NOTE | 2021-10-16 08:06 | ECHO ---
HEIGHT: 5 ft 9 in WEIGHT: 278 lb 3 oz DATE OF STUDY: 10/15/[address]: Rd Floyd NP 2-DIMENSIONAL: YES M.MODE: YES DOPPLER: YES COLOR FLOW: YES TDS: PORTABLE: YES DEFINITY: BUBBLE STUDY: DIAGNOSIS: HYPERTENSIVE EMERGENCY CARDIAC HISTORY: CATHERIZATION: SURGERY: PROSTHETIC VALVE: PACEMAKER: MEASUREMENTS (cm) DIASTOLIC (NORMALS) SYSTOLIC (NORMALS) IVSd 1.4 (0.6-1.2) LA Diam 4.3 (1.9-4.0) LVEF 55% LVIDd 5.2 (3.5-5.7) LVIDs 3.9 (2.0-3.5) %FS 24% LVPWd 1.7 (0.6-1.2) Ao Diam 2.5 (2.0-3.7) 2 DIMENSIONAL ASSESSMENT: RIGHT ATRIUM: NORMAL LEFT ATRIUM: NORMAL RIGHT VENTRICLE: NORMAL LEFT VENTRICLE: NORMAL TRICUSPID VALVE: NORMAL MITRAL VALVE: MILD MITRAL REGURGITATION PULMONIC VALVE: NORMAL AORTIC VALVE: NORMAL PERICARDIAL EFFUSION: NONE AORTIC ROOT: NORMAL LEFT VENTRICULAR WALL MOTION: NORMAL DOPPLER/COLOR FLOW: MILD MITRAL REGURGITATION COMMENTS: NORMAL LEFT VENTRICULAR EJECTION FRACTION 55-60%. NORMAL WALL MOTION. MILD MITRAL REGURGITATION. TECHNOLOGIST: DEE CLEMENTS
[2021-10-16] MEDS ORDERED: lisinopriL 10 MG TAB PO SCH (09:00)
== END 2021-10-15 16:56 | disposition home or self-care (01) | DRG 281 ==
LOC: ER 17:01 → ERHOLD 21:32 → 3RD-ICU 10-15 00:14
PROVIDERS: ADMIT Hospitalist; ATTEND Hospitalist
DX: I16.1 Hypertensive emergency (principal); I21.A1 Myocardial infarction type 2; G45.3 Amaurosis fugax; I10 Essential (primary) hypertension; Z20.822 Contact with and (suspected) exposure to COVID-19
CPT/HCPCS: 36415; 70450; 70544; 70549; 70553; 71045; 80048; 80053; 80061; 81003; 83880; 84484; 85025; 93005; 93306; 96374; 96375; 99285; A9577; J0360; J1650; U0003